=== PATIENT | female | born 1975 | race Caucasian/White ===

== ENCOUNTER 2017-11-10 14:02 | Emergency (ER) | payer OTHER ==
[~2017-11-10] VITALS: Ht 170.2 cm; Wt 81.8 kg
[2017-11-10] MEDS ORDERED: LIDODERM 5% P1 PATCH TD (16:06)
[2017-11-10] MEDS ORDERED: MOBIC7.5 MG PO (16:06)
[2017-11-10] MEDS ORDERED: ULTRAM50 MG PO (16:06)
[2017-11-10 16:12] VITALS: BP 120/99
== END 2017-11-10 16:16 | disposition home or self-care (01) ==
LOC: EME 14:02
DX: M25.552 Pain in left hip (principal); M71.9 Bursopathy, unspecified; Z88.8 Allergy status to other drugs, medicaments and biological substances
CPT/HCPCS: 73502; 99281; 99284